=== PATIENT | female | born 2000 | race Caucasian/White ===

== ENCOUNTER 2018-09-04 19:06 | Emergency (ER) | payer MEDICAID, OTHER ==
--- NOTE | 2018-09-04 19:34 | C.PDOC ---
History Of Present Illness 17 year old female with no past medical history presents to the emergency department with complaints of headache for the last two weeks, associated with bilateral intermittent blurry vision. Patient describes the headache as throbbin g to both sides of her scalp followed by the blurry vision due to the pain that resolves on its own. She states that when it started it was not the worst headache of her life and it was not of sudden onset. Patient denies any focal deficits, trauma, falls, or new diet. She notes being stressed at work recently but denies any SI / HI or depression / anxiety. She also denies shortness of breath, chest pain, neck stiffness, fever, ear pain, temporal pain, or sinus congestion. Time Seen by Provider: 09/04/18 19:34 Chief Complaint (Nursing): Headache History Per: Patient History/Exam Limitations: no limitations Onset/Duration Of Symptoms: Other (two weeks) Current Symptoms Are (Timing): Still Present Quality: Aching, Other (throbbing) Associated Symptoms: Blurred Vision Past Medical History Reviewed: Historical Data, Nursing Documentation, Vital Signs Vital Signs: Last Vital Signs Temp 98.6 F 09/04/18 19:20 Pulse 69 09/04/18 19:20 Resp 16 09/04/18 19:20 BP 145/87 09/04/18 19:20 Pulse Ox 100 09/04/18 19:20 - Medical History PMH: No Chronic Diseases Surgical History: No Surg Hx Family History: States: No Known Family Hx - Social History Hx Tobacco Use: No Hx Alcohol Use: No Hx Substance Use: Yes - Immunization History Hx Tetanus Toxoid Vaccination: No Hx Influenza Vaccination: No Hx Pneumococcal Vaccination: No Review Of Systems Constitutional: Negative for: Fever, Weakness, Malaise Eyes: Negative for: Pain, Conjunctivae Inflammation, Eyelid Inflammation, Redness ENT: Negative for: Ear Pain, Ear Discharge, Nose Pain, Nose Congestion Cardiovascular: Negative for: Chest Pain, Palpitations, Orthopnea, Edema, Light Headedness Respiratory: Negative for: Cough, Shortness of Breath, SOB with Excertion, Wheezing Gastrointestinal: Negative for: Nausea, Vomiting, Abdominal Pain, Diarrhea, Constipation, Melena Genitourinary: Negative for: Dysuria, Frequency Musculoskeletal: Negative for: Neck Pain, Shoulder Pain, Arm Pain Skin: Negative for: Rash, Lesions Neurological: Positive for: Headache. Negative for: Weakness, Numbness, Incoordination, Change in Speech, Confusion, Seizures, Altered Mental Status Psych: Negative for: Anxiety, Depression, Suicidal ideation Physical Exam - Physical Exam Appears: Well, Non-toxic, No Acute Distress Skin: Normal Color, Warm, Dry Head: Atraumatic, Normacephalic Eye(s): bilateral: Normal Inspection, PERRL, EOMI Ear(s): Bilateral: Normal Nose: Normal Oral Mucosa: Moist Tongue: Normal Appearing Lips: Normal Appearing Teeth: Normal Dentition Gingiva: Normal Appearing Throat: Normal, No Erythema Neck: Normal, Normal ROM, Supple, Other (no meningeal signs) Chest: Symmetrical, No Tenderness Cardiovascular: Rhythm Regular, No Murmur Respiratory: Normal Breath Sounds, No Rales, No Rhonchi, No Wheezing Gastrointestinal/Abdominal: Soft, No Tenderness, No Guarding, No Rebound Back: Normal Inspection, No CVA Tenderness, No Vertebral Tenderness Extremity: Normal ROM, No Tenderness, No Calf Tenderness, No Swelling Extremity: Bilateral: Atraumatic, No Pedal Edema, Normal ROM Pulses: Left Dorsalis Pedis: Normal, Right Dorsalis Pedis: Normal Neurological/Psych: Oriented x3, Normal Speech, Normal Cognition, Normal Cranial Nerves, Normal Motor, Normal Sensation, Other (no focal deficits) Gait: Steady Extremity: Right: No Drift, Left: No Drift ED Course And Treatment - Laboratory Results Result Diagrams: 09/04/18 20:06 09/04/18 20:06 O2 Sat by Pulse Oximetry: 100 (RA) Pulse Ox Interpretation: Normal - CT Scan/US CT Head Other Rad Studies (CT/US): Read By Radiologist, Radiology Report Reviewed CT/US Interpretation: IMPRESSION: 1. No acute intracranial abnormality. 2. Slight asymmetrical prominence of the right lateral ventricle of uncertain significance. Medical Decision Making Medical Decision Makin yr old F p/w bilateral scalp headache w/ intermittent blurry vision associated with headache. No fall or trauma. No vision deficits noted on exam, PERRLA, EOMI, No eye pain, Baseline visual acuity with full visual moreno. No conjuntival erythema. No FND noted on exam. No temporal pain. Non-thunderclap like per history. No meningeal signs. No fever, chills or night sweats. Likely ayptical migraine. impression: migraine headache Plan: CT Head w/o Contrast CMP Magnesium CBC Reglan 10mg IVP NaCl IV Fluids POC Urine 2128 Neuro exam remains unremarkable Pt denies any current symptoms and notes pain has resolved Likely migraine [place] Informed pt regarding slight asymmetrical prominence of R lateral ventricle and importance of follow up with outpatient neurology. Appreciate consult w/ Dr. Schafer, Likely chronic finding of CT, will see as outpt. Pt is agreeable to plan Disposition - Disposition Referrals: Harinder Schafer MD [Staff Provider] - Koby Graves MD [Staff Provider] - [facility] [Outside] [employer] [facility] [place] [Outside] [facility] [Outside] Disposition: HOME/ ROUTINE Disposition Time: 21:31 Condition: GOOD Additional Instructions: FOLLOW UP WITH Dr. SCHAFER REGARDING YOUR CT FINDINGS. RETURN IF ANY NEW ISSUES OR WORSENING DIDI FOLEY, thank you for letting us take care of you today. Your provider was Elijah Guaman and you were treated for HEADACHE/BLURRED VISION. The emergency medical care you received today was directed at your acute symptoms. If you were prescribed any medication, please fill it and take as directed. It may take several days for your symptoms to resolve. Return to the Emergency Department if your symptoms worsen, do not improve, or if you have any other problems. Please contact your doctor or call one of the physicians/clinics you have been referred to that are listed on the Patient Visit Information form that is included in your discharge packet. Bring any paperwork you were given at discharge with you along with any medications you are taking to your follow up visit. Our treatment cannot replace ongoing medical care by a primary care provider outside of the emergency department. Thank you for allowing the [facility] team to be part of your care today. If you had an X-Ray or CT scan: A Radiologist will review the ED reading if any change in treatment is needed we will contact you. If you had a blood, urine, or wound culture: It will take several days for the results, if any change in treatment is needed we will contact you. If you had an STI test: It will take 48 hours for the results. Please call after 1 week if you have not heard back. Instructions: Tension Headache, Headache, Adult, Migraine Headache (DC) Forms: [employer] ([place]) - Clinical Impression Clinical Impression: Headache - Scribe Statement The provider has reviewed the documentation as recorded by the Scribe (Damir Sam) Provider Attestation: All medical record entries made by the Scribe were at my direction and personally dictated by me. I have reviewed the chart and agree that the record accurately reflects my personal performance of the history, physical exam, medical decision making, and the department course for this patient. I have also personally directed, reviewed, and agree with the discharge instructions and disposition.
[2018-09-04 19:39] VITALS: TEMP 98.2
[2018-09-04] MEDS ORDERED: Sodium Chloride 0.9% 1,000 ML IV ONE (19:48)
[2018-09-04] MEDS ORDERED: Sodium Chloride 0.9% 1,000 ML ONE (19:59)
[2018-09-04 20:11] LABS: BASO % 0.5 % (0.0-2.0); EOS # 0.3 K/uL (0.0-0.7); EOS % 2.9 % (0.0-4.0); HEMOGLOBIN 11.9 g/dL (11.0-16.0); LYMPH # 3.3 K/uL (1.0-4.3); LYMPH % 36.7 % (20.0-40.0); MEAN CELL VOLUME 84.4 fL (81.0-99.0); MEAN CORPUSCULAR HEMOGLOBIN 27.2 pg (27.0-31.0); MEAN CORPUSCULAR HGB CONC 32.2 g/dL (33.0-37.0); MEAN PLATELET VOLUME 7.9 fL (7.2-11.7); MONO # 0.8 K/uL (0.0-0.8); MONO % 9.1 % (0.0-10.0); NEUT # 4.6 K/uL (1.8-7.0); NEUT % 50.8 % (50.0-75.0); RBC 4.36 Mil/uL (3.80-5.20); RED CELL DISTRIBUTION WIDTH 13.8 % (11.5-14.5); WHITE BLOOD COUNT 9.1 K/uL (4.8-10.8)
[2018-09-04 20:27] LABS: ALB/GLOB RATIO 1.5 (1.0-2.1); ALBUMIN 4.9 g/dL (3.5-5.0); ALT/SGPT 28 U/L (9-52); AST/SGOT 25 U/L (14-36); BLOOD UREA NITROGEN 13 mg/dL (7-17); CALCIUM 8.9 mg/dl (8.6-10.4); GFR NON-AFRICAN AMERICAN > 60
[2018-09-04 22:01] VITALS: BP 136/84; PULSE 72; RESP 14
[2018-09-05 03:30] VITALS: O2SAT 100
--- NOTE | 2018-09-05 09:31 | CT ---
Date of service: 2018-09-04 20:16:33 PROCEDURE: CT HEAD WITHOUT CONTRAST. HISTORY: headache, x2 weeks COMPARISON: None available. TECHNIQUE: Axial computed tomography images were obtained through the head/brain without intravenous contrast. Radiation dose: Total exam DLP = 959.42 mGy-cm. This CT exam was performed using one or more of the following dose reduction techniques: Automated exposure control, adjustment of the mA and/or kV according to patient size, and/or use of iterative reconstruction technique. FINDINGS: HEMORRHAGE: No intracranial hemorrhage. BRAIN: No mass effect or edema. No atrophy or chronic microvascular ischemic changes. VENTRICLES: No obstructive hydrocephalus. There is mild asymmetry of the lateral ventricles right-sided which is larger than the left likely an anatomic variant. CALVARIUM: Unremarkable. PARANASAL SINUSES: Minor mucosal thickening left maxillary antrum. MASTOID AIR CELLS: Unremarkable as visualized. No inflammatory changes. OTHER FINDINGS: None. IMPRESSION: Normal CT of the Head.
== END 2018-09-04 22:01 | disposition home or self-care (01) ==
LOC: C.ER 19:06
DX: R51 Headache (principal)
CPT/HCPCS: 70450; 80053; 81025; 83735; 85025; 96361; 96374; 99285; J2765; J7030